=== PATIENT | female | born 1995 | race Two or more races ===

== ENCOUNTER 2022-11-26 01:52 | Emergency (ER) | payer OTHER ==
[~2022-11-26] VITALS: Ht 162.6 cm; Wt 45.4 kg
== END 2022-11-26 03:41 | disposition home or self-care (01) ==
LOC: ER 01:52
DX: R00.2 Palpitations (principal); Z88.6 Allergy status to analgesic agent; Z91.013 Allergy to seafood; Z91.018 Allergy to other foods